=== PATIENT | female | born 2000 | race Caucasian/White ===

== ENCOUNTER 2022-10-25 14:13 | Emergency (ER) | payer SELFPAY ==
[2022-10-25 14:25] VITALS: BP 121/84; PULSE 90; RESP 17; TEMP 98; BMI 22.4
[2022-10-25] MEDS ORDERED: SODIUM CHLORIDE 1,000 ML IV STA (15:20)
[2022-10-25 16:09] LABS: HEMOGLOBIN 13.4 GM/dL (10.7-15.3); MCH 30.4 pg (25.7-33.7); MCHC 36.2 g/dl (32.0-36.0); MEAN CELL VOLUME 84.1 fl (80-96); MEAN PLT VOLUME 8.2 fl (7.5-11.1); PLATELET COUNT 232 10^3/uL (134-434); RBC 4.39 M/mm3 (3.60-5.2); RDW 13.5 % (11.6-15.6); WHITE BLOOD COUNT 12.1 K/mm3 (4.0-10.0)
[2022-10-25 16:24] LABS: EPI CELLS 18 /uL (0-25.1); HYALINE CASTS 0 /uL (0-3.1); PH,URINE 7.5 (5.0-8.0); URINE APPEARANCE CLEAR; URINE BILIRUBIN NEGATIVE (NEGATIVE); URINE COLOR YELLOW; URINE GLUCOSE (UA) NEGATIVE (NEGATIVE); URINE KETONE TRACE (NEGATIVE); URINE LEUK ESTERASE TRACE (NEGATIVE); URINE NITRITE NEGATIVE (NEGATIVE); URINE PROTEIN TRACE (NEGATIVE); URINE RBC 1755 /uL (0-23.9); URINE WBC 13 /uL (0-25.8)
[2022-10-25 17:05] LABS: URINE BACTERIA 0 /uL (0-1359)
[2022-10-25 17:13] LABS: POTASSIUM 3.6 mmol/L (3.5-5.1)
[2022-10-25 17:15] LABS: ALBUMIN 4.2 g/dl (3.4-5.0); BLOOD UREA NITROGEN 7.7 mg/dL (7-18); CALCIUM 9.7 mg/dL (8.5-10.1)
[2022-10-25 17:18] LABS: CREATININE 0.6 mg/dL (0.55-1.3)
[2022-10-25 17:20] LABS: BILIRUBIN,TOTAL 0.6 mg/dL (0.2-1)
[2022-10-25] MEDS ORDERED: ACETAMINOPHEN 1000 MG/100 ML BAG IVPB ONE (17:48)
[2022-10-25] MEDS ORDERED: ACETAMINOPHEN INJECTION 100 ML IVPB ONE (17:48)
== END 2022-10-25 20:19 | disposition home or self-care (01) ==
LOC: JER 14:13
PROC: 3E033NZ Introduction of Analgesics, Hypnotics, Sedatives into Peripheral Vein, Percutaneous Approach (ICD-10-PCS; principal; 2022-10-25)
PROC: 3E0337Z Introduction of Electrolytic and Water Balance Substance into Peripheral Vein, Percutaneous Approach (ICD-10-PCS; 2022-10-25)
DX: O03.4 Incomplete spontaneous abortion without complication (principal); O26.891 Other specified pregnancy related conditions, first trimester; R10.9 Unspecified abdominal pain; R68.83 Chills (without fever); R51.9 Headache, unspecified; R42 Dizziness and giddiness; O21.9 Vomiting of pregnancy, unspecified; Z3A.00 Weeks of gestation of pregnancy not specified
CPT/HCPCS: 36415; 76817-TC; 80053; 81003; 84702; 85027; 86850; 86900; 86901; 99284-25